=== PATIENT | male | born 1995 | race Caucasian/White ===

== ENCOUNTER 2018-06-20 18:49 | Emergency (ER) | payer SELFPAY ==
[~2018-06-20] VITALS: Ht 177.8 cm; Wt 72.6 kg
[2018-06-20 18:53] VITALS: BP 154/102
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
--- NOTE | 2018-06-20 19:12 | NUR ---
HAND-OFF: Report given to Jada BOWIE. patient is in stable condition .
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
[2018-06-20] MEDS ORDERED: traMADol 50mg tab ORAL ONE (19:30)
[2018-06-20] MEDS ORDERED: IBUPROFEN600 MG ORAL (20:10)
[2018-06-20] MEDS ORDERED: LIDODERM700 M1 TOPIC (20:10)
[2018-06-20 20:21] VITALS: BP 148/96
--- NOTE | 2018-06-20 20:22 | NUR ---
ER Nurse Note: Pt seen, treated, medially cleared for discharge by ER PA. All orders completed and x-ray results is negative. Discharge instructions and prescriptions given with repeat verbaliazation by pt. Instructed pt to follow up with primary care provider within one week. Pt understood all teaching. Pt a&ox4, VSS, no signs of distress. ID band removed. Pt left with all belongings with steady gait via own transportation.
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
== END 2018-06-20 20:23 | disposition home or self-care (01) ==
LOC: EMR 19:33
DX: M54.5 Low back pain (principal); V09.9XXA Pedestrian injured in unspecified transport accident, initial encounter; Y92.9 Unspecified place or not applicable; Y99.0 Civilian activity done for income or pay
CPT/HCPCS: 72020; 99283